=== PATIENT | female | born 1980 | race Caucasian/White ===

== ENCOUNTER → 2016-04-29 | Outpatient (CLI) | payer BC ==
[~2016-04-29] MED LIST: CALC500C70 PO; PRENTAB26 PO
== END | disposition home or self-care (01) ==
LOC: C.LABSPEC 16:22
PROVIDERS: ATTEND Obstetrics & Gynecology
DX: O09.03 Supervision of pregnancy with history of infertility, third trimester (principal)

== ENCOUNTER 2016-05-27 11:16 | Outpatient (CLI) | payer BC ==
[~2016-05-27] VITALS: Ht 177.8 cm; Wt 91.5 kg
[2016-05-27] MEDS ORDERED: PRENTAB26 PO (11:33)
[2016-05-27 11:34] VITALS: Ht 177.8 cm; Wt 91.5 kg
--- NOTE | 2016-05-27 14:07 | DIAGNOSTIC IMAGING REPORT ---
LIMITED (US) CLINICAL HISTORY: POSTDATES COMPARISON STUDY: No previous studies for comparison. FINDINGS: A limited ultrasound was performed. A single live fetus in cephalic presentation was identified. The femur measured 8 cm corresponding to an is been a postmenstrual age of 41 weeks and 1 day. heart rate was 143. The amniotic fluid index was 14.9 cm. IMPRESSION: Single live fetus in cephalic presentation. The heart rate is 143. The placenta was anterior. There is no evidence of previa. Electronically signed by: Vasu Jang M.D. 05/27/2016 2:05 PM Dictated Date/Time: 05/27/2016 2:03 PM
== END 2016-05-27 14:30 | disposition home or self-care (01) ==
LOC: C.OPB 11:16 → C.LD 11:17 → C.OPB 14:30
PROVIDERS: ATTEND Obstetrics & Gynecology
DX: O48.0 Post-term pregnancy (principal); Z3A.40 40 weeks gestation of pregnancy

== ENCOUNTER 2016-05-29 21:14 | Outpatient (CLI) | payer BC ==
[~2016-05-29] VITALS: Ht 177.8 cm; Wt 95.2 kg
[~2016-05-29 21:14] MED LIST changes: -CALC500C70 PO
[2016-05-29] MEDS ORDERED: CALC500C70 PO (21:33)
[2016-05-29 21:35] VITALS: Ht 177.8 cm; Wt 95.2 kg
--- NOTE | 2016-06-07 14:08 | EDITING REQUIRED CODING QUERY ---
BRYAN BULB INSERTION A bryan bulb was documented by nursing staff for 05/29/16. A description of this procedure by the physician could not be located in EMR. Please clarify below the bryan bulb: ( ) Bryan bulb was inserted BRIEF DESCRIPTION: ( ) Bryan bulb was not inserted ( ) Other, please clarify: Thank you for your assistance, Patria Holder - Orthotic/Prosthetic Practitioner
== END 2016-05-29 22:55 | disposition home or self-care (01) ==
LOC: C.LD 21:14 → C.OPB 21:14
PROVIDERS: ATTEND Obstetrics & Gynecology
DX: O48.1 Prolonged pregnancy (principal); Z3A.41 41 weeks gestation of pregnancy

== ENCOUNTER 2016-05-30 07:45 | Inpatient (IN) | payer BC ==
[~2016-05-30] VITALS: Ht 177.8 cm; Wt 91.4 kg
[~2016-05-30 07:45] MED LIST changes: +CALC500C70 PO
[2016-05-30 08:17] VITALS: Ht 177.8 cm; Wt 91.4 kg
[2016-05-30 09:20] LABS: HEMATOCRIT 34.7 % (37-47); MEAN CELL VOLUME 89.7 fL (80-100); MEAN CORPUSCULAR HEMOGLOBIN 31.8 pg (25-34); MEAN CORPUSCULAR HGB CONC 35.4 g/dl (32-36); MEAN PLATELET VOLUME 10.5 fL (7.4-10.4); PLATELET COUNT 171 K/uL (130-400); RED BLOOD COUNT 3.87 M/uL (4.2-5.4); WHITE BLOOD COUNT 14.95 K/uL (4.8-10.8)
[2016-05-30] MEDS ORDERED: OXYTOCIN 30 UNITS/500ML NSS IV PRN (09:30)
[2016-05-30] MEDS ORDERED: LACTATED RINGER'S 1000ML 500 ML IV PRN ×2 (09:30→14:13)
[2016-05-30] MEDS ORDERED: LACTATED RINGER'S 1000ML 1,000 ML IV PRN (09:51)
--- NOTE | 2016-05-30 10:41 | Medical Student: [facility] ---
Med Student History & Physical Date of Service May 30, 2016. Chief Complaint Induction and check progress after vaginal bryan placement History of Present Illness Source: patient, clinic records, hospital records This is a 35 year old at 41 weeks 2 days GA as established by date of IUI and confirmed by first trimester ultrasound, who presents for induction of labor post-dates. Her following intrauterine insemination secondary to infertility is complicated by uterine fibroid during and some early spotting, but has since been stable. She reports frequent movement, denies bleeding, denies fluid leakage, and reports infrequent cramping in her upper abdomen but no jaspreet contractions. Labs: Blood type: B+, negative antibody screen HCT/HB: 35.4%/12.1 g/dl Varicella: Equivocal (Hx of varicella infection) PAP: Negative Rubella: Immune VDRL/RPR: Nonreactive HBsAg: Negative HIV: Negative Chlamydia: Negative Gonorrhea: Negative CF: Negative 1st trimester aneuploidy risk: Negative GTT: Negative following elevated screen GBS: Negative OB History G1: Current DENTAL SPECIALIST History Patient reports menarche at age 15, but reports highly irregular menses, ranging in frequency from 46-60 days between periods. She has been using OCPs to regulate her cycle and since initiating control has periods every 28 days which last 5-6 days and are heaviest on day 2. She has a history of infertility. She denies any previous diagnoses of STDs. She has a history of abnormal pap smear in 1999 and had a LEEP in 2001, but has had normal pap smears since then, most recently in 2014. She also reports HSG, and laparoscopy for adhesions. Past Medical History Past medical history is only significant for infertility. She takes no medications regularly other than vitamins. Past Surgical History Other than her gynecological surgeries, she has had a tonsillectomy and multiple surgeries on her left arm. Family History Family history of DM, HTN. Maternal grandmother had breast cancer. Social History Smoking Status: Never Smoker Alcohol Use: socially (none during ) Drug Use: none Marital Status: Housing status: lives with significant other (and two dogs) Occupational Status: employed Allergies Coded Allergies: No Known Allergies (Unverified , 05/27/16) Home Medications Multivit/Min/Iron/Fol Ac/Pren ( Vitamin), 1 TAB PO DAILY Review of Systems Eyes: + problem reported (some flashing in periphery, but seen by ophthalmology and cleared) Respiratory: No shortness of breath Cardiovascular: No chest pain Abdomen: No pain Physical Exam General Appearance: WD/WN, no apparent distress Respiratory/Chest: lungs clear, normal breath sounds Cardiovascular: regular rate, rhythm, no murmur Abdomen / GI: non tender, soft, + pertinent finding (gravid) Genitourinary - Female: + pertinent finding (cervix 4 cm dilated, 70% effaced, -1 station) Extremities: no calf tenderness, no pedal edema Neurologic/Psych: alert, oriented x 3 Monitoring External Monitor: baseline 145, moderate variability, accelerations seen, no decelerations. Tocodynamometer: occasional, irregular contractions Laboratory Results 05/30/16 09:07 Test 05/30/16 09:07 Red Blood Count 3.87 M/uL (4.2-5.4) Mean Corpuscular Volume 89.7 fL (80-100) Mean Corpuscular Hemoglobin 31.8 pg (25-34) Mean Corpuscular Hemoglobin Concent 35.4 g/dl (32-36) RDW Standard Deviation 42.5 fL (36.4-46.3) RDW Coefficient of Variation 13.1 % (11.5-14.5) Mean Platelet Volume 10.5 fL (7.4-10.4) Assessment and Plan 35 year old , 41 weeks 2 days GA for induction of labor, Tracing Category I (HR 145, moderate variability, present accelerations, absent decelerations) who is 4 cm dilated, 70% effaced and -1 station. Patient is in latent stage 1 of labor. Transabdominal US showed vertex down. Started pitocin 2 milliunits to increase frequency and regularity of contractions. Will place epidural prior to rupture of membranes. Continue monitoring and regular cervical checks.
[2016-05-30] MEDS ORDERED: EpHEDrine SULFATE INJ 50 MG/ML AMP ONE (12:07)
[2016-05-30] MEDS ORDERED: FENTANYL 2MCG/ML ROPIV 1.25MG/ML 100ML BAG EPI ONE (12:07)
[2016-05-30] MEDS ORDERED: BUPIVACAINE 0.25% 30 ML VIAL ONE (12:07)
[2016-05-30] MEDS ORDERED: FENTANYL CITRATE INJ 50 MCG/1 ML 2 ML VIAL ONE (12:07)
[2016-05-30] MEDS: LACTATED RINGER'S 1000ML 1,000 ML IV SCH ×2 (13:26→18:09)
[2016-05-30] MEDS ORDERED: NALOXONE HCL INJ 0.4 MG/1 ML VIAL/CARP IV PRN (14:15)
[2016-05-30] MEDS ORDERED: EpHEDrine SULFATE INJ 50 MG/ML AMP IV PRN (14:15)
[2016-05-30] MEDS ORDERED: DiphenhydrAMINE HCL 50 MG/ML VIAL IV PRN (14:15)
[2016-05-30] MEDS ORDERED: ONDANSETRON INJ 2 MG/ML 2 ML VIAL IV PRN (14:15)
[2016-05-30] MEDS ORDERED: NALBUPHINE HCL INJ 10 MG/ML AMP IV PRN (14:15)
[2016-05-30] MEDS: FENTANYL 2MCG/ML ROPIV 1.25MG/ML 100ML BAG EPI PRN ×2 (19:08→20:29)
[2016-05-31] MEDS ORDERED: LANOLIN OINT EXT PRN ×2 (00:15)
[2016-05-31] MEDS ORDERED: BENZOCAINE 20% AER SPR 82.5 GM CAN EXT PRN (00:15)
[2016-05-31] MEDS ORDERED: SUPERCREAM 0.870 % 15GM JAR EXT PRN (00:15)
[2016-05-31] MEDS ORDERED: OXYTOCIN 30 UNITS/500ML NSS IV PRN (00:15)
[2016-05-31] MEDS ORDERED: ACETAMINOPHEN/CODEINE 300/30MG TAB PO PRN ×2 (00:15)
--- NOTE | 2016-05-31 01:16 | Anesthesia Procedure Note ---
Anesthesia Epidural Removal Nt Date & Time May 31, 2016 at 01:16 Vital Signs Pain Intensity: 0.0 Notes Mental Status: alert / awake / arousable, participated in evaluation Nausea / Vomiting: adequately controlled Pain: adequately controlled Airway Patency, RR, SpO2: stable & adequate BP & HR: stable & adequate Hydration State: stable & adequate Neuraxial Anesthesia: was administered, sensory block is resolved Anesthetic Complications: no major complications apparent, pt satisfied with anesthetic care Epidural: removed without complications, with tip intact
--- NOTE | 2016-05-31 01:53 | DELIVERY SUMMARY ---
DATE OF OPERATION: 05/30/2016 The patient is a 35-year-old 1, P1-0-0 white female, EDC of 05/21/2016, who presented for post dates induction. She received a cervical Brina balloon the night prior to this induction. It was removed early this morning. She was 4 cm dilated at that time. Membranes could not be ruptured at that point because the cervix was too posterior. Pitocin augmentation was begun. She received epidural analgesia. Her membranes were ruptured for clear fluid. During the course of her labor, there were episodes of late appearing decelerations and variables, at which time the Pitocin needed to be discontinued. She actually became fully dilated and was pushing well but because of maternal exhaustion and recurrent variable decelerations, vacuum was applied to the vertex at +3 station. Through 3 contractions, the vertex was brought to the perineum. During that time period, there were 2 pop-offs. The patient then pushed the out on her own. Mouth and nasopharynx were suctioned on the perineum and the rest of the infant then delivered with mild shoulder dystocia. After releasing the anterior arm, the rest of the infant delivered easily and was placed on mother's abdomen for further attention and stimulation. Cord was clamped and cut and because of poor respiratory effort, the was placed on the baby bed and positive pressure ventilation was performed for approximately 7 minutes. At this point, there was spontaneous crying and positive pressure ventilation was stopped. Heart rate went from 90 to 100 beats per minute to 150. The placenta was then expressed intact with a 3-vessel cord. A second-degree perineal laceration was repaired with 3-0 chromic in the usual fashion. Estimated blood loss was 400 mL. Mother and were then doing well and were stable after delivery. I attest to the content of the Intraoperative Record and any orders documented therein. Any exceptio ns are noted below.
[2016-05-31] MEDS: ACETAMINOPHEN 325 MG TAB PO PRN ×3 (02:50→09:36)
[2016-05-31 03:15] VITALS: BP 116/75; PULSE 94; TEMP 37.6; O2SAT 97
[2016-05-31 05:30] VITALS: TEMP 36.5
--- NOTE | 2016-05-31 07:07 | Progress Note ---
Subjective May 31, 2016. Subjective conversation w/ patient, physical exam Ambulation: ambulating normally Voiding: no voiding problems Passing Gas: Yes Diet Tolerance: Regular Diet Lochia: Small Feeding Type: Breast Feeding Review of Systems Constitutional: No chills, No fever Respiratory: No cough, No shortness of breath Cardiac: No chest pain, No claudication Objective Vital Signs Date Time Temp Pulse Resp B/P Pulse Ox O2 Delivery O2 Flow Rate FiO2 05/31/16 05:30 36.5 05/31/16 03:15 37.6 94 18 116/75 97 Room Air 05/31/16 03:15 97 Room Air Physical Exam General Appearance: WELL-APPEARING, NO APPARENT DISTRESS Respiratory/Chest: lungs clear, no accessory muscle use Cardiovascular: regular rate, rhythm, no murmur Fundus: Firm, Non-Tender, Relation to Umbilicus (at the umbilicus) Extremities: non-tender, no calf tenderness Laboratory Results Last 24 Hours Test 05/30/16 09:07 White Blood Count 14.95 K/uL Red Blood Count 3.87 M/uL Hemoglobin 12.3 g/dL Hematocrit 34.7 % Mean Corpuscular Volume 89.7 fL Mean Corpuscular Hemoglobin 31.8 pg Mean Corpuscular Hemoglobin Concent 35.4 g/dl RDW Standard Deviation 42.5 fL RDW Coefficient of Variation 13.1 % Platelet Count 171 K/uL Mean Platelet Volume 10.5 fL Assessment and Plan Post- Day#: 1 Continue Routine Care: Resident Physician Supervision Note: I interviewed and examined the patient. Discussed with Dr. Weber and agree with findings and plan as documented in the note. Any exceptions or clarifications are listed here: [None] Documented By: Colleen Preston s/p Day 1 - vitals reviewed and wnl - Hgb 12.3 yesterday - blood: B+, Rubella immune, GBS negative - encourage ambulation, encourage , monitor lochia - patient doing well clinically - CONTINUE ROUTINE POST CARE
[2016-05-31] MEDS: IBUPROFEN 600 MG TAB PO PRN ×3 (07:47→21:09)
[2016-05-31 09:05] VITALS: BP 117/75; PULSE 99; TEMP 36.6; O2SAT 98
[2016-05-31] MEDS: DOCUSATE SODIUM 100 MG CAP PO SCH ×2 (09:35→21:09)
[2016-05-31] MEDS: PRENATAL VITAMIN TAB PO SCH (09:35)
[2016-05-31 12:15] VITALS: BP 123/83; PULSE 92; TEMP 36.6; O2SAT 99
[2016-05-31 15:20] VITALS: BP 115/73; PULSE 93; TEMP 36.9
[2016-05-31 19:25] VITALS: BP 114/71; PULSE 91; TEMP 37.1
[2016-06-01 00:45] VITALS: BP 116/73; PULSE 79; TEMP 36.9
[2016-06-01 03:20] VITALS: BP 115/71; PULSE 72; TEMP 36.5; O2SAT 99
[2016-06-01 07:55] LABS: HEMATOCRIT 28.4 % (37-47)
[2016-06-01 08:00] VITALS: BP 105/67; PULSE 84; TEMP 36.6
--- NOTE | 2016-06-01 08:12 | Progress Note ---
Subjective Jun 01, 2016. Subjective conversation w/ patient, physical exam Ambulation: ambulating normally Voiding: no voiding problems Passing Gas: Yes Diet Tolerance: Regular Diet Lochia: Small Feeding Type: Breast Feeding Review of Systems Constitutional: + sweats (overnight, but no changes in vital signs) Respiratory: No cough, No shortness of breath, No sputum Cardiac: No chest pain, No claudication Abdomen: No nausea, No pain, No vomiting Objective Vital Signs Date Time Temp Pulse Resp B/P Pulse Ox O2 Delivery O2 Flow Rate FiO2 06/01/16 03:20 36.5 72 16 115/71 99 Room Air 06/01/16 00:45 Room Air 06/01/16 00:45 36.9 79 20 116/73 Room Air 05/31/16 19:25 37.1 91 18 114/71 Room Air 05/31/16 15:20 36.9 93 18 115/73 Room Air 05/31/16 15:20 Room Air 05/31/16 12:15 36.6 92 18 123/83 99 Room Air 05/31/16 09:05 36.6 99 18 117/75 98 Room Air 05/31/16 09:05 98 Room Air Physical Exam General Appearance: WELL-APPEARING, NO APPARENT DISTRESS Respiratory/Chest: lungs clear, no accessory muscle use Cardiovascular: regular rate, rhythm, no murmur Fundus: Firm, Non-Tender, Relation to Umbilicus (at umbilicus) Extremities: non-tender, no calf tenderness Laboratory Results Last 24 Hours Test 06/01/16 07:30 Hemoglobin 9.6 g/dL Hematocrit 28.4 % Assessment and Plan Post- Day#: 2 Continue Routine Care: s/p Day 2 - vitals reviewed and wnl - Hgb 9.6 yesterday - blood: B+, Rubella immune, GBS negative - encourage ambulation, encourage , monitor lochia - patient doing well clinically - patient counselled on discharge instructions - PATIENT TO BE DISCHARGED TODAY Resident Physician Supervision Note: I was present with Dr. Weber during the history and exam. I discussed the case with the resident and agree with the findings and plan as documented in the note. Any exceptions or clarifications are listed here: PPD2 doing well, discharge home today. Documented By: Tyra Lind
--- NOTE | 2016-06-01 08:13 | Discharge Instructions ---
Discharge Instructions Date of Service Jun 01, 2016. Admission Reason for Admission: Induction Discharge Discharge Diagnosis / Problem: Spontaneous Vaginal Delivery Discharge Goals Goal(s): Routine recovery after delivery Medications Continue Dispensed Medications: supercream, dermaplast, tucks, lansinoh Activity Recommendations Activity Limitations: per Instructions/Follow-up section . Instructions / Follow-Up Instructions / Follow-Up ACTIVITY RECOMMENDATIONS: * Gradual return to full activity over the next 2-3 weeks. * No lifting - nothing heavier than baby over the next 2-3 weeks. * Do not engage in vigorous exercise, sexual activity or sports until cleared by your physician. * Do not drive or operate any motorized equipment until cleared by your physician. * You may shower/bathe daily. MEDICATIONS: For discomfort or pain, you may use Acetaminophen (Tylenol), Ibuprofen (Advil), or Naproxen (Aleve) following the package directions. For constipation you may use Colace following the package directions. BREAST CARE: If you are not breast feeding: * Wear a supportive bra 24 hours a day for one to two weeks. * Avoid stimulating your breasts and nipples as much as possible during the first few weeks after delivery. * When taking a shower, have the warm water hit your back, not breasts. * When your breasts feel full, apply ice packs. Usually three to four times a day helps ease the discomfort. * Take a mild pain medication (Tylenol / Motrin) when you are uncomfortable. If breast feeding: * Use breast milk to lubricate nipples. Lansinoh cream may be used for sore nipples. You do not need to remove cream prior to breast feeding. If using a different brand of cream, check the label for directions regarding removal of cream prior to nursing. * Wear a supportive bra. * If having problems with breasts or breast feeding, call a staffing consultant or your health care provider. EPISIOTOMY CARE: After delivery, if you have an episiotomy (stitches), the following steps will ease discomfort and aid healing. * For the first 24 hours after delivery, place ice packs next to your episiotomy to help reduce swelling. * After the first 24 hour-period, sitz baths, either portable or in the tub, are suggested. A shower with a shower arm sprayed over the episiotomy may be comforting. * [place] care should be done after each voiding and bowel movement. Squirt warm water from a plastic bottle over the perineum (region of the body between the anus and urinary opening) and pat dry. * Use Dermoplast to ease discomfort. Shake container. [place] directly over the episiotomy. Place a Tucks on a clean sanitary pad next to your episiotomy. SPECIAL CARE INSTRUCTIONS: When you are discharged from the hospital, it is important for you to follow the instructions listed below: * During the first week at home, you should be able to care for yourself and your baby. In addition, the usual light household activities are encouraged. * Limit your activities to the way you feel. Do not try to clean the house or move furniture. Be sensible. * If you actively engage in sports and have done so up until the time of your delivery, you may resume these activities as soon as you feel able. This may take up to one month or even longer. Use good judgment. * Continue to take your vitamins for at least six weeks after the of your baby. * Your diet need not be limited unless you were on a special diet before your delivery. Breast-feeding mothers need around 2500 calories per day and at least 64-80 ounces of fluid per day (8 to 10 glasses). * You should eat foods from the four major food groups. Crash diets or fad diets are to be avoided. Eating lean meats, fresh fruits and vegetables, low-fat dairy products, high fiber foods and a regular exercise program, will help you get back to your pre- weight without putting your health at risk. * Constipation is sometimes a problem after delivery. Take a mild laxative as needed. If breast feeding, Milk of Magnesia is acceptable to use. You may use a suppository or Fleets enema if no episiotomy. * A daily shower or tub bath is suggested. Be sure to thoroughly and gently dry the perineum. * A bloody vaginal discharge will usually continue until around four weeks post . A small amount of bleeding may continue for as long as six weeks. Vaginal discharge changes from the bright red bleeding after delivery to pink then brownish and finally yellowish-pink before becoming white and disappearing. * Bleeding may increase with activity. Your first period may come in 4-8 weeks. If you are breast feeding, your period may be delayed even longer. * [place] (sex) can begin whenever both you and your partner feel comfortable and do not have any form of genital infection. It is recommended that you wait at least six weeks for internal and external healing to occur. If you have questions, please talk to your health care practitioner. A condom should be used to prevent infection and . * Foreplay, gentle intercourse and lubrication is very important the first several times to prevent pain. A water-based lubricant such as K-Y jelly or Astroglide may be used. * If you have RH negative blood and your baby is RH positive, you will receive RHOGAM by injection prior to discharge. The nurse will give you a card to keep with you that has the date and place that you received RHOGAM after delivery. * During your care, you had a Rubella screen done to check for the presence of rubella antibodies in your blood. If your test was negative, you will receive a Rubella vaccine prior to discharge. This vaccine may cause a fever, soreness at the injection site and flu-like symptoms. If these symptoms persist, notify your health care practitioner. is not advised for one month after a Rubella vaccine. * Verbalizes understanding of car seat law as reviewed with patient nursing. * Car Seat hand-out given and reviewed with patient by nursing. * Shaken baby information reviewed with patient by nursing. Call you doctor if: * Heavy bleeding (saturating several pads an hour) or passing clots the size of your fist. * A fever >101 degrees F (38.3 degrees C) on two occasions four hours apart and /or chills. * Unusual pain in the pelvic or vaginal areas. * "Baby Blues" lasting longer than two weeks. If you have any questions or concerns, call your health care practitioner at . FOLLOW UP VISIT: * Please call the office at to schedule a 6 week examination. It is important you keep this appointment. It is important for you to make arrangements for either yearly or twice yearly check-ups thereafter. Current Hospital Diet Patient's current hospital diet: Regular OB Diet Discharge Diet Recommended Diet: Regular Diet Pending Studies Studies pending at discharge: no Medical Emergencies . Who to Call and When: Medical Emergencies: If at any time you feel your situation is an emergency, please call 911 immediately. . Non-Emergent Contact Non-Emergency issues call your: Primary Care Provider, Cold Water Machine Operator . . "Provider Documentation" section prepared by Alex Weber. VTE Core Measure Inpt VTE Proph given/why not?: Treatment not indicated
[2016-06-01] MEDS: PRENATAL VITAMIN TAB PO SCH (08:51)
[2016-06-01] MEDS: IBUPROFEN 600 MG TAB PO PRN (08:51)
[2016-06-01] MEDS: DOCUSATE SODIUM 100 MG CAP PO SCH (08:51)
[2016-06-01 12:58] VITALS: BP_DIAS 67; PULSE 84; TEMP 36.6
[2016-06-01] MEDS ORDERED: BISACODYL 5 MG TABEC PO SCH (20:00)
--- NOTE | 2016-06-07 01:33 | DISCHARGE SUMMARY ---
PRINCIPAL DIAGNOSIS: Induction of labor for post-term , vacuum-assisted vaginal delivery. HISTORY: The patient is a 35-year-old 1, para 1-0-0-1 white female, EDC of 05/21/2016, who had presented for post-dates induction. She initially received a cervical Brian balloon and presented at 4 cm dilated on 05/30/2016. Membranes could not be ruptured at that time. Pitocin augmentation was begun. She received epidural analgesia. Then, her membranes were ruptured for clear fluid. She progressed to full dilation, but because of persistent variable decelerations, vacuum was applied on the vertex at +3 station. The was brought to [facility] and delivered at that point. There was 7 minutes of resuscitation for the baby with positive pressure ventilation. A second-degree perineal laceration was repaired with 3-0 chromic in the usual fashion. She did well . She was ambulating, voiding, and eating regular diet without any difficulty. She remained afebrile throughout her hospital stay. Hemoglobin on admission was 12.3, hematocrit 34.7. On her second day, hemoglobin 9.6, hematocrit 28.4. She was sent home with the usual instructions. She is to take iron 1 tablet daily for the next 6 weeks as well as her vitamin. She is to call for temperature of 101 degrees or higher, heavy vaginal bleeding, burning with urination, increasing abdominal pain, or breast pain. She will be seen in the office in 6 weeks for her exam.
== END 2016-06-01 13:15 | disposition home or self-care (01) | DRG 775 ==
LOC: C.LD 07:45 → EDSTATUS 15:31 → C.MS4N 05-31 03:18
PROVIDERS: ADMIT Obstetrics & Gynecology; ATTEND Obstetrics & Gynecology
PROC: 10907ZC Drainage of Amniotic Fluid, Therapeutic from Products of Conception, Via Natural or Artificial Opening (ICD-10-PCS; principal; 2016-05-30)
PROC: 0U7C7ZZ Dilation of Cervix, Via Natural or Artificial Opening (ICD-10-PCS; principal; 2016-05-30)
PROC: 3E033VJ Introduction of Other Hormone into Peripheral Vein, Percutaneous Approach (ICD-10-PCS; principal; 2016-05-30)
PROC: 0KQM0ZZ Repair Perineum Muscle, Open Approach (ICD-10-PCS; principal; 2016-05-30)
PROC: 10D07Z6 Extraction of Products of Conception, Vacuum, Via Natural or Artificial Opening (ICD-10-PCS; principal; 2016-05-30)
DX: O48.0 Post-term pregnancy (principal); Z37.0 Single live birth; O75.81 Maternal exhaustion complicating labor and delivery; O76 Abnormality in fetal heart rate and rhythm complicating labor and delivery; O70.1 Second degree perineal laceration during delivery; O32.2XX0 Maternal care for transverse and oblique lie, not applicable or unspecified; Z3A.41 41 weeks gestation of pregnancy

== ENCOUNTER → 2016-11-01 | Outpatient (CLI) | payer BC ==
[~2016-11-01] MED LIST changes: -CALC500C70 PO
== END | disposition home or self-care (01) ==
LOC: C.PAPS 08:57
PROVIDERS: ATTEND Physician Assistant
DX: Z01.419 Encounter for gynecological examination (general) (routine) without abnormal findings (principal)